=== PATIENT | female | born 1960 | race Caucasian/White ===

== ENCOUNTER 2016-08-07 22:38 | Emergency (ER) | payer OTHER ==
[~2016-08-07] VITALS: Ht 167.6 cm; Wt 72.6 kg
--- NOTE | 2016-08-07 22:50 | ED SKIN/ALLERGY COMPLAINT ---
History of Present Illness General Chief Complaint: Allergy Symptoms Stated Complaint: ALLERGIC RXN: BEGAN ANTIBIOTIC TONIGHT Source: patient Exam Limitations: no limitations Vital Signs & Intake/Output Vital Signs & Intake/Output Vital Signs Date Time Temp Pulse Resp B/P Pulse O2 O2 Flow FiO2 Ox Delivery Rate 08/07 2354 98.5 83 18 132/69 96 Room Air 08/07 2253 95 Room Air 08/07 2250 98.4 85 18 124/72 95 Room Air ED Intake and Output 08/08 0000 08/07 1200 Intake Total 0 Output Total Balance 0 Intake, Oral 0 Patient 160 lb Weight Allergies Coded Allergies: Penicillins (Intermediate, RASH 08/07/16) amoxicillin (Intermediate, RASH 08/07/16) azithromycin (Intermediate, RASH 08/07/16) clarithromycin (From Biaxin) (Intermediate, RASH 08/07/16) Reconcile Medications Prednisone 20 MG TABLET 1 TAB PO BID ALLERGIC REACTION Triage Nurses Notes Reviewed? yes Onset: Abrupt Duration: minute(s): (45) Timing: single episode today Severity: moderate Location: face, torso, extremities Possible Factors: medications No Modifying Factors: none HPI: 56 year old female took first dose of bactrim 45 minutes prior to arrival arrives with chief complaint of erythema, rash and itching to her torso face and upper extremity his. The difficulty breathing or difficulty swallowing. She was prescribed Bactrim for bronchitis. History of previous antibiotic allergies. Tonight was her first dose. Past History Travel History Traveled to [place] past 21 day No Medical History Any Pertinent Medical History? see below for history Respiratory: bronchitis Surgical History Surgical History: non-contributory Psychosocial History What is your primary language Barb[place] Family History Hx Contributory? No Review of Systems Review of Systems Constitutional: Denies: chills, fever. EENTM: Reports: no symptoms. Respiratory: Denies: cough, short of breath, sputum production. Cardiovascular: Denies: chest pain, palpitations. GI: Reports: no symptoms. Genitourinary: Reports: no symptoms. Musculoskeletal: Reports: no symptoms. Skin: Reports: see HPI (ITCHING), erythema. Neurological/Psychological: Reports: no symptoms. Hematologic/Endocrine: Denies: bruising, bleeding, polyuria, polydipsia. Immunologic/Allergic: Denies: splenectomy. All Other Systems: Reviewed and Negative Physical Exam Physical Exam General Appearance: well developed/nourished, alert, awake, anxious, mild distress Head: atraumatic Eyes: Bilateral: PERRL, EOMI. Ears, Nose, Throat: normal pharynx, normal ENT inspection, hearing grossly normal Neck: normal inspection, supple Respiratory: normal breath sounds, NO WHEEZING, RALES OR RHONCHI Cardiovascular: regular rate/rhythm Gastrointestinal: soft, non-tender Back: normal inspection Extremities: normal inspection, normal range of motion, no edema Neurologic/Psych: awake, alert, oriented x 3, normal mood/affect Skin: rash Skin Problem Location: face, neck, upper extremities, lower extremities Skin Problem Character: erythema, urticarial, warm Lymphatic: no anterior cervical marielena Progress Differential Diagnosis: allergic reaction (TO BACTRIM) Plan of Care: Current Medications Sig/Bijal Start time Last Medication Dose Stop Time Status Admin Diphenhydramine HCl 50 MG ONCE ONE 08/07 2314 AC (Benadryl) 08/08 2315 Famotidine 20 MG ONCE ONE 08/07 2314 AC (Pepcid) 08/08 2315 Methylprednisolone 125 MG ONCE ONE 08/07 2314 AC (Solu Medrol) 08/08 2315 PATIENT MUCH IMPROVED AFTER IV MEDS. BACTRIM DISCARDED IN THE ED. SHE WILL TAKE PREDNISONE AND BENADRYL DIRECTED AND FOLLOW UP WITH HER PCP IN THE OFFICE. (TATA GARCIA,MGAUI) Departure Departure Time of Disposition: 2340 Disposition: HOME OR SELF CARE Condition: Stable Clinical Impression Primary Impression: Allergic reaction Referrals: HANK MTZ MD (PCP/Family) Additional Instructions: STOP THE BACTRIM. TAKE THE PREDNISONE DIRECTED. FOLLOW UP WITH YOUR DOCTOR IN THE OFFICE. RETURN NEEDED. Departure Forms: Customer Survey General Discharge Information Prescriptions: Current Visit Scripts Prednisone 1 TAB PO BID #6 TAB
[2016-08-07] MEDS ORDERED: PREDNISONE20 M1 PO (23:43)
[2016-08-07 23:54] VITALS: BP 132/69
== END 2016-08-07 23:55 ==
LOC: ERH 22:38
DX: T37.0X5A Adverse effect of sulfonamides, initial encounter (principal)
CPT/HCPCS: 96374; 96375; J1200; J2930

== ENCOUNTER 2016-10-26 12:13 | Emergency (ER) | payer OTHER ==
[~2016-10-26] VITALS: Ht 154.9 cm; Wt 74.4 kg
[~2016-10-26 12:13] MED LIST: PREDNISONE20 M1 PO
--- NOTE | 2016-10-26 12:56 | RADIOLOGY REPORT ---
EXAMINATION: XR KNEE, RIGHT CLINICAL INFORMATION: Pain. Rule out sprain. COMPARISON: None TECHNIQUE: Four views of the right knee. FINDINGS: No acute fracture or subluxation. Compartmental joint spaces are maintained. No joint effusion. The soft tissues are unremarkable. IMPRESSION: Unremarkable right knee radiographs.
--- NOTE | 2016-10-26 15:44 | ED UPPER/LOWER EXTREMITY COMPL ---
History of Present Illness General Chief Complaint: Lower Extremity Problems Stated Complaint: R KNEE PAIN Source: patient Exam Limitations: no limitations Vital Signs & Intake/Output Vital Signs & Intake/Output Vital Signs Date Time Temp Pulse Resp B/P B/P Pulse O2 O2 Flow FiO2 Mean Ox Delivery Rate 10/26 1609 98.2 74 16 112/84 99 Room Air 10/26 1218 97.7 83 20 106/74 98 Room Air Allergies Coded Allergies: Penicillins (Intermediate, RASH 08/07/16) amoxicillin (Intermediate, RASH 08/07/16) azithromycin (Intermediate, RASH 08/07/16) clarithromycin (From Biaxin) (Intermediate, RASH 08/07/16) Reconcile Medications Meloxicam (Mobic) 15 MG TABLET 1 TAB PO DAILY pain Prednisone 20 MG TABLET 1 TAB PO BID ALLERGIC REACTION Triage Note: PT C/O PAIN IN RIGHT KNEE AFTER WALKING ON IT YESTERDAY. PT DENIES INJURY. PT STATES +SWELLING. UNABLE TO VISUALIZE IN TRIAGE Triage Nurses Notes Reviewed? yes Onset: Abrupt Duration: day(s): (2), constant, continues in ED Timing: recent history Severity: moderate, severe Pain/Injury Location: Right: Knee. Method of Injury: unknown No Modifying Factors: none HPI: 56-year-old female comes into emergency room with complaints of right knee pain for the past 2 days. Sharp. Throbbing. Swelling. Denies any known trauma. Denies any previous surgeries on this knee. Pain is located just below her kneecap. Sharp pain. Continuous. Worse with any walking. (BIENVENIDO MONTEIRO) Past History Travel History Traveled to [place] past 21 day No Medical History Any Pertinent Medical History? see below for history Cardiovascular: hyperlipidemia Respiratory: bronchitis Surgical History Surgical History: non-contributory Psychosocial History What is your primary language [place] Tobacco Use: Current Daily Use Daily Tobacco Use Amount/Type: => 5 Cigarettes daily ETOH Use: occasional use Illicit Drug Use: denies illicit drug use Family History Hx Contributory? No (BIENVENIDO MONTEIRO) Review of Systems Review of Systems Constitutional: Reports: no symptoms. EENTM: Reports: no symptoms. Respiratory: Reports: no symptoms. Cardiovascular: Reports: no symptoms. Gastrointestinal/Abdominal: Reports: no symptoms. Genitourinary: Reports: no symptoms. Musculoskeletal: Reports: see HPI. Skin: Reports: no symptoms. Neurological/Psychological: Reports: no symptoms. Hematologic/Endocrine: Reports: no symptoms. Immunological: Reports: no symptoms. All Other Systems: Reviewed and Negative (BIENVENIDO MONTEIRO) Physical Exam Physical Exam General Appearance: well developed/nourished, mild distress Head: atraumatic Eyes: Bilateral: normal appearance. Ears, Nose, Throat: normal ENT inspection, hearing grossly normal Neck: normal inspection Cardiovascular/Respiratory: no respiratory distress Back: normal inspection Knee Right: soft tissue tenderness, limited range of motion, Tenderness over patellar tendon, patient can straight leg raise, full range of motion, MCL/LCL intact, negative anterior posterior drawer, Neurologic/Tendon: normal sensation, normal motor functions, normal tendon functions, responds to pain, no evidence tendon injury, no pulse deficit Skin: intact, normal color, warm/dry Lymphatic: no anterior cervical marielena (BIENVENIDO MONTEIRO) Progress Differential Diagnosis: arterial insufficiency, CHF, compartment syndrome, contusion, dislocation, DVT, fracture, gout, septic arthritis, sprain, tendon injury Plan of Care: Orders Procedure Date/time Status Durable Medical Equipment 10/26 7551 Active Diagnostic Imaging: Viewed by Me: Radiology Read. Discussed w/RAD: Radiology Read. Radiology Impression: SERVICE DATE: 10/26/16 EXAM TYPE: RAD - XRY-KNEE COMPLETE RIGHT EXAMINATION: XR KNEE, RIGHT CLINICAL INFORMATION: Pain. Rule out sprain. COMPARISON: None TECHNIQUE: Four views of the right knee. FINDINGS: No acute fracture or subluxation. Compartmental joint spaces are maintained. No joint effusion. The soft tissues are unremarkable. IMPRESSION: Unremarkable right knee radiographs. DICTATED BY: RONY ENRIQUEZ MD DATE/TIME DICTATED:1251 LABORER CHEMICAL PROCESSING:JELANI DATE/TIME TRANSCRIBED:10/26/161251 CONFIDENTIAL, DO NOT COPY WITHOUT APPROPRIATE AUTHORIZA (BIENVENIDO MONTEIRO) Departure Departure Disposition: HOME OR SELF CARE Condition: Stable Clinical Impression Primary Impression: Patellar tendinitis of right knee Secondary Impressions: Bursitis of right knee Referrals: OLEKSANDR GARCIA,LEONCIO MTZ MD,HANK (PCP/Family) Additional Instructions: Ice. Rest. Motrin for pain. Elevation. Follow-up with orthopedic doctor provided if not better in 3-5 days. If symptoms do not improve you'll require further evaluation with possible repeat x-rays as well as evaluation by public finance specialist. Sprains can last anywhere from days to weeks. No high impact running or jumping if you have an ankle sprain or any type of lower extremity sprain. Return to normal activity only after symptoms have resolved. Please go over all results of today's visit with your primary care doctor. Contact your primary care doctor to let them know you were here in the emergency room. There may be nonspecific findings which may not be related to your visit today here in the emergency room but may require further evaluation and chronic monitoring by your primary care doctor. If you had a laceration today the chance of foreign body always remains. You should follow-up with your primary care doctor for recheck in 3-5 days for a wound check. If you had an x-ray done there is a chance that a fracture could have been missed on initial read and you should follow-up with your primary care doctor for repeat x-rays if symptoms persist. If your blood pressure was elevated here in the emergency room please have rechecked by her primary care doctor within the next 48 hours by your primary care doctor. If you were prescribed a narcotic here in the emergency room or any type of controlled substances you're not allowed to drive while taking this medication or operate any type of heavy machinery. Narcotics can make you feel lightheaded dizziness nausea and can cause constipation. You may need to picker/puller a stool softener. Thank you for choosing [facility] emergency room. Please return to the emergency room immediately if you have any other concerns worsening of symptoms. Departure Forms: Customer Survey General Discharge Information Prescriptions: Current Visit Scripts Meloxicam (Mobic) 1 TAB PO DAILY #20 TAB (BIENVENIDO MONTEIRO) PA/COMPONENT ASSEMBLER SUPERVISOR Co-Sign Statement Statement: ED Attending supervision documentation- [] I saw and evaluated the patient. I have also reviewed all the pertinent lab results and diagnostic results. I agree with the findings and the plan of care as documented in the PA's/COMPONENT ASSEMBLER SUPERVISOR's documentation. [X] I have reviewed the ED Record and agree with the PA's/COMPONENT ASSEMBLER SUPERVISOR's documentation. [] Additions or exceptions (if any) to the PAs/COMPONENT ASSEMBLER SUPERVISOR's note and plan are summarized below: [] (CARRIE COOPER DO) Procedures Splinting Location: right knee Manual Alignment Performed: No Pre-Made Type: knee imobilizer Splint Applied By: splint applied by me Pre-Proc Neuro Vasc Exam: normal Post-Proc Neuro Vasc Exam: normal (NATASHA LOCKETT,BIENVENIDO)
[2016-10-26] MEDS ORDERED: MOBIC15 M1 PO (15:46)
[2016-10-26 16:09] VITALS: BP 112/84
== END 2016-10-26 16:11 ==
LOC: ERH 12:13
DX: M76.51 Patellar tendinitis, right knee (principal); M70.51 Other bursitis of knee, right knee
CPT/HCPCS: 73562-RT